=== PATIENT | female | born 1960 | race Caucasian/White ===

== ENCOUNTER 2017-03-14 11:26 | Observation (INO) ==
--- NOTE | 2017-03-14 11:40 | Emergency Department Note ---
Disposition Clinical Impression: CVA (cerebral vascular accident) Qualifiers: CVA mechanism: unspecified Qualified Code(s): I63.9 - Cerebral infarction, unspecified Disposition: Admitted As Inpatient Condition: Fair Referrals: Rica Shook CNP [Primary Care Provider] - Forms: ED Satisfaction Letter Time of Disposition: 13:47 General Adult HPI - General Chief complaint: ED Dizziness Stated complaint: dizziness, increased numbness L hand Time Seen by Provider: 03/14/17 11:32 Source: patient Mode of arrival: wheelchair Limitations: no limitations Nursing Notes Reviewed: Yes Vital Signs Reviewed: Yes - History of Present Illness HPI Narrative: 57-year-old history of previous stroke had some residual left upper extremity weakness who comes in with increased weakness in her left arm for last 4 days. Also has had some numbness in the left arm. Patient also states that she has been dizzy with difficulty ambulating for the last 4 days. Patient has a history of previous aneurysm and coiling done. Pt Subjective Complaint: left Arm numbness and weakness Onset (ago): day(s) (4) Location: left, upper extremity Pain Scale: 0 Associated symptoms: Reports: other ( dizziness) Treatments Prior to Arrival: none - Related Data Allergies Allergy/AdvReac Type Severity Reaction Status Date / Time bupropion [From Wellbutrin] Allergy Itching Verified 03/14/17 11:31 latex Allergy Rash Verified 03/14/17 11:31 Constitutional: Denies: fever, chills, weakness, weight change Eyes: Denies: eye pain, eye discharge, vision change ENT ED: Denies: ear pain, throat pain, dental pain, hearing loss, epistaxis, congestion, dysphagia Cardiovascular: Denies: chest pain, palpitations, dyspnea on exertion, edema, syncope Respiratory: Denies: cough, dyspnea, wheezes, hemoptysis, stridor Gastrointestinal: Denies: abdominal pain, nausea, vomiting, diarrhea, constipation, hematemesis, melena, hematochezia Genitourinary: Denies: dysuria, frequency, hematuria, discharge Musculoskeletal: Denies: back pain, neck pain, arthralgia, myalgia Integumentary: Denies: rash, abrasion, lesions Neurological: Reports: weakness (Left arm), numbness (Left arm), abnormal gait, vertigo. Denies: headache, paresthesias, confusion Psychiatric: Denies: anxiety, depression, suicidal thoughts, homicidal thoughts , auditory hallucinations, visual hallucinations Endocrine: Denies: fatigue Hematological/Lymphatic: Denies: easy bleeding, easy bruising Allergic/Immunologic: Denies: facial swelling, urticaria Past Medical History - Past Medical History Medical history: Reports: CVA, hypertension Psychiatric history: Reports: no psych history - Social History Smoking Status: Current every day smoker Smokeless Tobacco Status: No Alcohol use: Reports: unknown Drug use: Reports: none Physical Exam - General Limitations: no limitations General appearance: alert, in no apparent distress - Head Head exam: atraumatic, normocephalic, normal inspection - Eye Eye exam: Present: normal appearance, PERRL, EOMI - ENT ENT exam: normal exam, normal oropharynx, mucous membranes moist - Neck Neck exam: Present: normal inspection, full ROM, trachea midline - Chest Chest inspection: Present: normal inspection, symmetric chest wall rise - Respiratory Respiratory exam: Present: normal lung sounds bilaterally - Cardiovascular Cardiovascular exam: Present: regular rate, normal rhythm, normal heart sounds - Abdominal Exam Abdominal exam: Present: soft, Non-Tender. Absent: tenderness, distention, guarding, rebound, rigidity - Expanded Lower Extremity Exam Neurovascular/Tendon exam: Absent: motor deficit, sensory deficit, tendon deficit Gait: antalgic - Back Exam Back exam: Present: normal inspection, full ROM. Absent: tenderness - Neurological Exam Neurological exam: Present: motor sensory deficit (Some weakness of coiler strength on the left.) - Psychiatric Psychiatric exam: Present: normal affect, normal mood - Skin Skin exam: Present: warm Course - Reevaluation(s) Reevaluation #1: 57-year-old female with a history of previous aneurysm in coiling with residual stroke symptoms are comes in with worsening left upper extremity weakness and numbness for the last [address] of the head was negative for acute findings. Consultation obtained with neurology to come down and see the patient. Patient will be admitted is not a TPA candidate based on onset and previous aneurysm. Time: 14:17 - Consultations Consultation #1: Discussed with emanuel See. Time: 12:00 Consultation #2: Discussed with emanuel Adamson. Time: 14:17 Vital Signs Temperature 97.9 F 03/14/17 11:27 Pulse Rate 65 03/14/17 11:27 Respiratory Rate 20 03/14/17 11:27 Blood Pressure 169/97 03/14/17 11:27 O2 Sat by Pulse Oximetry 98 03/14/17 11:27 Temperature 97.9 F 03/14/17 11:27 Pulse Rate 59 03/14/17 12:20 Respiratory Rate 17 03/14/17 12:20 Blood Pressure 153/94 03/14/17 12:20 O2 Sat by Pulse Oximetry 98 03/14/17 12:20 Oxygen Delivery Oxygen Delivery Room Air Medical Decision Making - Lab Data Lab results reviewed: Yes I reviewed the patient's lab results. Result diagrams: 03/14/17 12:00 03/14/17 12:00 Lab Results 03/14/17 03/14/17 03/14/17 Range/Units 12:00 12:00 12:00 WBC 5.6 (4.3-11.1) K/mcL RBC 5.67 H (3.82-4.97) M/mcL Hgb 18.4 H (11.5-15.4) g/dL Hct 53.9 H (35.3-44.9) % MCV 95.1 (83.0-100.0) fL MCH 32.5 (28.0-33.3) pg MCHC 34.1 (31.6-35.5) g/dL RDW 13.6 (11.5-14.5) % Plt Count 217 (140-400) K/mcL MPV 10.1 (9.4-12.4) fL Immature Gran % 0.2 (0-4) % Seg Neutrophils % 28.2 % Lymphocytes % 52.7 % Monocytes % 12.5 % Eosinophils % 4.8 % Basophils % 1.6 % Neutrophils # 1.6 (1.6-8.9) K/mcL Lymphocytes # 3.0 (0.6-4.6) K/mcL Monocytes # 0.7 (0.0-1.3) K/mcL Eosinophils # 0.3 (0.0-0.6) K/mcL Basophils # 0.1 (0.0-0.2) K/mcL Sodium 138 (136-145) mEq/L Potassium 3.5 (3.5-5.1) mEq/L Chloride 107 (98-107) mEq/L Carbon Dioxide 22 L (23-29) mEq/L BUN 10 (6-20) mg/dL Creatinine 0.78 (0.60-1.20) mg/dL Est GFR ( Amer) > 60 (> 60) Est GFR (Non-Af Amer) > 60 (> 60) BUN/Creatinine Ratio 13 (6-26) Glucose 96 (70-105) mg/dL Calculated Osmolality 285 (280-300) Calcium 9.1 (8.6-10.3) mg/dL Troponin I < 0.03 (< 0.04) ng/mL Urine Color (Yellow) Urine Clarity (Clear) Urine pH (5.0-8.0) pH Units Ur Specific Rhodes (1.010-1.025) Urine Protein (Neg-Trace) mg/dL Urine Glucose (UA) (Normal) mg/dL Urine Ketones (Negative) mg/dL Urine Blood (Negative) Urine Nitrite (Negative) Urine Bilirubin (Negative) Urine Urobilinogen (Normal) mg/dL Ur Leukocyte Esterase (Negative) Urine Microscopic RBC (0-3) per hpf Urine Microscopic WBC (0-3) per hpf Ur Squamous Epith Cells (None-Few) per lpf Urine Bacteria (None-Few) per hpf Ur Culture Indicated? (NO) 03/14/17 Range/Units 12:15 WBC (4.3-11.1) K/mcL RBC (3.82-4.97) M/mcL Hgb (11.5-15.4) g/dL Hct (35.3-44.9) % MCV (83.0-100.0) fL MCH (28.0-33.3) pg MCHC (31.6-35.5) g/dL RDW (11.5-14.5) % Plt Count (140-400) K/mcL MPV (9.4-12.4) fL Immature Gran % (0-4) % Seg Neutrophils % % Lymphocytes % % Monocytes % % Eosinophils % % Basophils % % Neutrophils # (1.6-8.9) K/mcL Lymphocytes # (0.6-4.6) K/mcL Monocytes # (0.0-1.3) K/mcL Eosinophils # (0.0-0.6) K/mcL Basophils # (0.0-0.2) K/mcL Sodium (136-145) mEq/L Potassium (3.5-5.1) mEq/L Chloride (98-107) mEq/L Carbon Dioxide (23-29) mEq/L BUN (6-20) mg/dL Creatinine (0.60-1.20) mg/dL Est GFR ( Amer) (> 60) Est GFR (Non-Af Amer) (> 60) BUN/Creatinine Ratio (6-26) Glucose (70-105) mg/dL Calculated Osmolality (280-300) Calcium (8.6-10.3) mg/dL Troponin I (< 0.04) ng/mL Urine Color Yellow (Yellow) Urine Clarity Turbid A (Clear) Urine pH 6.0 (5.0-8.0) pH Units Ur Specific Rhodes 1.015 (1.010-1.025) Urine Protein Trace (Neg-Trace) mg/dL Urine Glucose (UA) Normal (Normal) mg/dL Urine Ketones Negative (Negative) mg/dL Urine Blood Negative (Negative) Urine Nitrite Negative (Negative) Urine Bilirubin Negative (Negative) Urine Urobilinogen Normal (Normal) mg/dL Ur Leukocyte Esterase Small H (Negative) Urine Microscopic RBC 5-15 H (0-3) per hpf Urine Microscopic WBC 5-15 H (0-3) per hpf Ur Squamous Epith Cells Many H (None-Few) per lpf Urine Bacteria Moderate H (None-Few) per hpf Ur Culture Indicated? NO. (NO) - Radiology Data Radiology results reviewed: Yes I reviewed the patient's radiology results. Chest X-Ray 03/14/17 11:33 IMPRESSION: No acute cardiopulmonary process. D/ / 03/14/2017 12:17:12 Saeid Kumar MD / Gayatri Pineda Interpreting Provider: Saeid Kumar MD Head CT 03/14/17 11:33 IMPRESSION: No acute intracranial abnormality. Multifocal areas of encephalomalacia are similar to previous MRI on 08/08/2014. Chronic small vessel ischemic white matter disease and cerebral volume loss. D/ / 03/14/2017 13:38:38 Jay Dahl MD / gabbie Interpreting Provider: Jay Dahl MD - EKG Data EKG #1 EKG attestation: Yes I reviewed and interpreted this EKG. EKG shows normal: sinus rhythm Rate: normal Rhythm: NSR Interpretation: no acute changes NIH Stroke Scale - Level of Consciousness LOC: Alert - LOC Questions LOC Questions: Answers both correctly - LOC Commands LOC Commands: Performs both correctly - Best Gaze Best Gaze: Normal - Visual Visual: No visual loss - Facial Palsy Facial Palsy: Normal - Motor Arms Motor Arm-Left: Drift, does NOT hit bed Motor Arm-Right: No drift for 10 seconds - Motor Legs Motor Leg-Left: No drift for 5 seconds Motor Leg-Right: No drift for 5 seconds - Limb Ataxia Limb Ataxia: Normal, No Ataxia - Sensory Sensory: Normal - Best Language Best Language: No aphasia - Dysarthria Dysarthria: Normal - Extinction and Inattention Extinction and Inattention: Normal - NIHSS Total Score NIHSS Total Score: 1 TPA Checklist - Source Information Source: Family - Eligibilty for IV tPA 1. LKW equal to or less than 4.5 hours be before treatment: No - LKW: 3-4.5 hrs Add. Warnings/Precautions Patient/family understanding: The patient/family members have been counseled and understood the risk, benefit , and alternatives of treatment.
[2017-03-14 12:11] LABS: Basophils # 0.1 K/mcL (0.0-0.2); Basophils % 1.6 %; Eosinophils # 0.3 K/mcL (0.0-0.6); Eosinophils % 4.8 %; Hematocrit 53.9 % (35.3-44.9); Hemoglobin 18.4 g/dL (11.5-15.4); Immature Granulocytes % 0.2 % (0-4); Lymphocytes % 52.7 %; Mean Corpuscular HGB Conc 34.1 g/dL (31.6-35.5); Mean Corpuscular Hemoglobin 32.5 pg (28.0-33.3); Mean Corpuscular Volume 95.1 fL (83.0-100.0); Mean Platelet Volume 10.1 fL (9.4-12.4); Monocytes # 0.7 K/mcL (0.0-1.3); Monocytes % 12.5 %; Neutrophils # 1.6 K/mcL (1.6-8.9); Platelet Count 217 K/mcL (140-400); Red Blood Count 5.67 M/mcL (3.82-4.97); Red Cell Distribution Width 13.6 % (11.5-14.5); Segmented Neutrophils % 28.2 %
[2017-03-14 12:34] LABS: BUN/Creatinine Ratio 13 (6-26); Blood Urea Nitrogen 10 mg/dL (6-20); Calcium 9.1 mg/dL (8.6-10.3); Carbon Dioxide 22 mEq/L (23-29); Chloride 107 mEq/L (98-107); Glucose 96 mg/dL (70-105); Osmolality,Calculated 285 (280-300); Potassium 3.5 mEq/L (3.5-5.1); Sodium 138 mEq/L (136-145); eGFR For African Americans > 60 (> 60); eGFR For Non-African Americans > 60 (> 60)
[2017-03-14 13:28] LABS: Bilirubin,Urine Negative (Negative); Blood,Urine Negative (Negative); Clarity,Urine Turbid (Clear); Color,Urine Yellow (Yellow); Glucose,Urine (UA) Normal (Normal); Ketones,Urine Negative (Negative); Leukocyte Esterase,Urine Small (Negative); Nitrite,Urine Negative (Negative); Protein,Urine Trace mg/dL (Neg-Trace); Specific Gravity,Urine 1.015 (1.010-1.025); Urobilinogen,Urine Normal (Normal)
[2017-03-14 13:29] LABS: Bacteria,Urine Moderate per hpf (None-Few); Squamous Epithelial Cell,Urine Many per lpf (None-Few)
[2017-03-14] MEDS ORDERED: clonazePAM 0.5 MG TABLET PO STA (16:24)
[2017-03-14] MEDS ORDERED: hydroCHLOROthiazide 25 MG TABLET PO STA (16:24)
[2017-03-14] MEDS ORDERED: Naloxone 0.4 MG/ML INJ IVP PRN (17:09)
--- NOTE | 2017-03-14 18:02 | Internal Med History&Physical ---
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 History of hypertension-we will allow for permissive hypertension maintaining systolic around 180-hydralazine as needed for systolic greater than 200 Qualifiers: Hypertension type: essential hypertension Qualified Code(s): I10 - Essential (primary) hypertension (3) DVT prophylaxis Current visit: Yes Status: Chronic SCD Internal Medicine - H&P: HPI Chief complaint: dizziness Admitted From: Emergency Dept Plans for Post Hospital Care: Home History of present illness: Ms. Bray is a 57 year old female past medical hx of HTN, CVA aneurysm current smoker. Coronary patient she has not been feeling well for the past few days. She does have a history of stroke with left-sided weakness however over the past few days she has been experiencing increasing weakness as well as tingling to her left arm she also has been dizzy to the point that she feels as if she is going to fall down. She denies any recent falls. She denies any slurred speech difficulty swallowing. In the past she had aneurysm coil 2005 at [facility]. Had a MRA 2016 which did show a small left MCA bifurcation aneurysm measuring 2.5 mm in diameter. She presented to the ER with the above complaints. Lab work was obtained which was unremarkable CT of head was obtained which showed chronic changes. Chest x-ray no acute process. EKG with normal sinus rhythm. She has been admitted for further workup evaluation. Cristofer patient does complain of dizziness feels as if the room is spinning denies any nausea or chest pain or palpitations. She does appear anxious Boner assessment left-sided weakness noted as well as left-sided facial droop. She is bradycardic on the monitor and slightly hypertensive. I did review his case with Dr. Mitchell who agrees with plan. Past Med Surg Social Fam HX - Past Medical History Medical history: CVA, hypertension Psychiatric history: no psych history - Social History Smoking Status: Current every day smoker Smokeless Tobacco Status: No Alcohol use: unknown Drug use: none Internal Medicine - H&P: Meds Clopidogrel Bisulfate [Plavix] 75 mg PO DAILY 03/14/17 [History] Losartan [Cozaar] 25 mg PO DAILY 03/14/17 [History] Metoprolol Tartrate [Lopressor] 50 mg PO BID 03/14/17 [History] Simvastatin [Zocor] 40 mg PO DAILY 03/14/17 [History] Tizanidine HCl 4 mg PO BID PRN 03/14/17 [History] Venlafaxine HCl [Venlafaxine HCl ER] 75 mg PO DAILY 03/14/17 [History] clonazePAM [Klonopin] 0.5 mg PO TID PRN 03/14/17 [History] hydroCHLOROthiazide [Hydrochlorothiazide] 25 mg PO DAILY 03/14/17 [History] 3 Allergy/AdvReac Type Severity Reaction Status Date / Time bupropion [From Wellbutrin] Allergy Itching Verified 03/14/17 11:31 latex Allergy Rash Verified 03/14/17 11:31 All Systems PM: A 10-system review of systems was performed and is negative for pertinent findings except as documented above in the HPI. - Constitutional Constitutional: no chills, no fever(s), no night sweats - EENT Eyes: no change in vision, no discharge, no pain, no photophobia Nose, mouth and throat: no dysphagia, no nasal discharge, no neck pain, no sore throat - Cardiovascular Cardiovascular ROS IM: lightheadedness, no chest pain, no diaphoresis, no dyspnea, no palpitations, no syncope - Respiratory Respiratory: no cough, no dyspnea, no wheezing, no excessive phlegm production - Gastrointestinal Gastrointestinal: no abdominal pain, no diarrhea, no hematemesis, no hematochezia, no melena, no nausea, no vomiting - Genitourinary Genitourinary: no change in urinary stream, no dysuria, no flank pain, no hematuria - Musculoskeletal Musculoskeletal ROS IM: no numbness, no tingling - Neurological Neurological ROS: dizziness, tingling, weakness - Constitutional Vitals: Temp Pulse Resp BP Pulse Ox 97.9 F 62 16 136/98 96 03/14/17 11:27 03/14/17 17:38 03/14/17 17:38 03/14/17 17:38 03/14/17 17:38 General appearance: Present: A&O X 3, answers questions appropriately - Head Head exam: Present: atraumatic, normocephalic - Eye Eye exam: Present: PERRL, conjuntiva pink, sclera anicteric Pupils: Present: PERRL - Neck Neck exam general surgery: Present: supple, trachea midline. Absent: lymphadenopathy - Respiratory Respiratory exam: Present: CTAB. Absent: accessory muscle use, rales, rhonchi, wheezes - Cardiovascular Cardiovascular exam: Present: RRR, +S1, +S2. Absent: diastolic murmur, gallop, rubs, systolic murmur - GI/Abdominal GI/Abdominal exam: Present: normal bowel sounds, soft, no peritoneal signs. Absent: distended, tenderness - Extremities Exam Extremities exam: Present: warm, radial pulses palpable and symmetrical. Absent : calf tenderness, cyanotic, pedal edema - Neurological Exam Neurological exam: Present: CN II-XII intact, oriented X3. Absent: pronater drift, facial droop, speech deficit - Expanded Neurological Exam Patient oriented to: Present: person, place, time Speech: Present: fluid speech Cranial Nerves: EOM's intact PM: Normal, tongue deviation PM: Abnormal Left Neuro motor strength exam: LUE: 4, RUE: 5, LLE: 4, RLE: 5 Coma Scale Eye Opening: Spontaneous Coma Scale Motor Response: Obeys Commands Coma Scale Verbal Response: Oriented Coma Scale Total: 15 Internal Med - H&P Results - Labs CBC & Chem 7: 03/14/17 12:00 03/14/17 12:00 - EKG Data EKG shows normal: sinus rhythm - Diagnostic Studies Other Images Additional comments: Chest X-Ray 03/14/17 11:33 IMPRESSION: No acute cardiopulmonary process. D/ / 03/14/2017 12:17:12 Saeid Kumar MD / Gayatri Pineda Interpreting Provider: Saeid Kumar MD Head CT 03/14/17 11:33 IMPRESSION: 1. No acute intracranial abnormality. 2. Multifocal areas of encephalomalacia are similar to previous MRI on 08/08/2014. 3. Chronic small vessel ischemic white matter disease and cerebral volume loss. D/ / 03/14/2017 13:38:38 Jay Dahl MD / [email or web address] Interpreting Provider: Jay Dahl MD
[2017-03-14] MEDS: clonazePAM 0.5 MG TABLET PO PRN (22:50)
[2017-03-15 00:24] LABS: Basophils # 0.1 K/mcL (0.0-0.2); Basophils % 1.4 %; Eosinophils # 0.3 K/mcL (0.0-0.6); Eosinophils % 4.5 %; Hemoglobin 17.4 g/dL (11.5-15.4); Immature Granulocytes % 0.2 % (0-4); Immature Platelets 4.4 % (1.1-6.1); Lymphocytes # 2.8 K/mcL (0.6-4.6); Lymphocytes % 47.5 %; Mean Corpuscular HGB Conc 34.1 g/dL (31.6-35.5); Mean Corpuscular Hemoglobin 32.6 pg (28.0-33.3); Mean Corpuscular Volume 95.5 fL (83.0-100.0); Mean Platelet Volume 9.9 fL (9.4-12.4); Monocytes # 0.9 K/mcL (0.0-1.3); Monocytes % 15.1 %; Neutrophils # 1.8 K/mcL (1.6-8.9); Platelet Count 217 K/mcL (140-400); Red Blood Count 5.34 M/mcL (3.82-4.97); Red Cell Distribution Width 13.6 % (11.5-14.5); Segmented Neutrophils % 31.3 %
[2017-03-15] MEDS ORDERED: Heparin 25,000 UNIT/500 ML D5W 25,000 UNIT/500 ML BAG IVC SCH (00:45)
[2017-03-15 01:09] LABS: INR 1.1; Prothrombin Time 11.8 Seconds (9.4-12.1)
[2017-03-15 01:12] LABS: Activated Partial Thrombo Time 32.7 Seconds (26.0-36.0)
[2017-03-15 01:25] LABS: BUN/Creatinine Ratio 17 (6-26); Blood Urea Nitrogen 15 mg/dL (6-20); Calcium 9.8 mg/dL (8.6-10.3); Carbon Dioxide 24 mEq/L (23-29); Chloride 107 mEq/L (98-107); Chol/HDL Ratio 2.4 (0-4.9); Cholesterol 138 mg/dL (< 200); Glucose 107 mg/dL (70-105); HDL Cholesterol 57 mg/dL (40-59); LDL Cholesterol,Calculated 55 mg/dL (0-99); Magnesium 1.9 mg/dL (1.6-2.6); Osmolality,Calculated 289 (280-300); Potassium 3.9 mEq/L (3.5-5.1); Sodium 139 mEq/L (136-145); Triglycerides 128 mg/dL (< 150); eGFR For African Americans > 60 (> 60); eGFR For Non-African Americans > 60 (> 60)
--- NOTE | 2017-03-15 02:30 | Event Note ---
Date of Encounter: 03/15/17 Time of Encounter: 02:28 Recieved page from floor nurse that MRI/MRA results returned. 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 Patient has no acute complaints, neurological status unchanged. I called the on-call neurologist, Dr. Fraser, who suggested that the patient be placed on a vascular protocol dose heparin drip without push corrections, and to get a CTA of the head and neck. I have placed these orders and confirmed with nurse. I have also placed a consult to vascular surgery.
--- NOTE | 2017-03-15 11:54 | Neurology - Consult Note ---
Date of Encounter: 03/14/17 Time of Encounter: 11:54 Assessment and Plan (1) Left-sided weakness Current Visit: Yes Status: Acute This patient who has an history of previous stroke with a history of cerebral aneurysm with coiling several years ago with mild residual left-sided weakness now admitted with this acute dizziness which is more lightheaded but some is spinning feeling along with worsening of this left-sided weakness CT scan of the head was negative I did not appreciate any real bad weakness she did have a mildly spastic weakness of the left side which is likely due to her previous stroke Currently she is on Plavix suggested to continue She will need workup including MRI of the brain along with MRA to make sure there is no underlying other abnormality in particularly no associated bleed: No large bleed noted on CT scan of the head She did have a residual aneurysm noted on her previous imaging studies Also suggested check for other metabolic and infectious abnormalities and particularly UTI that may be contributing to her symptoms Dizziness could be peripheral in nature but before that we have discovered a central etiology (2) Dizziness Current Visit: Yes Status: Chronic (3) History of CVA with residual deficit Current Visit: Yes Status: Chronic She is on Plavix suggested to continue on it no evidence of any new infarct on imaging studies will follow the results of MRI and MRA of the brain (4) History of cerebral aneurysm repair Current Visit: Yes Status: Chronic Stable no evidence of any bleed noted, Continue on Plavix only No further change in the medication, Make sure patient is hydrated Physical therapy to evaluate the patient for gait and balance May use some meclizine on an as needed basis for dizziness make sure patient is well hydrated History of Present Illness HPI: Ms. Bray is a 57 year old female hx of HTN, CVA aneurysm, s/p coiling at [facility] < came into the emergency room because of foot dizziness lightheadedness and some worsening of her left-sided weakness from the previous stroke. Last imaging studies of her head MRA 2016 which did show a small left MCA bifurcation aneurysm measuring 2.5 mm in diameter. She presented to the ER with the above complaints. Lab work was obtained which was unremarkable CT of head was obtained which showed chronic changes. Chest x-ray no acute process. EKG with normal sinus rhythm. She has been admitted for further workup evaluation. Baseline patient did have a mild residual left-sided weakness but she is able to walk without any help Past Med Surg Social Fam HX - Past Medical History Medical history: CVA, hypertension Psychiatric history: no psych history - Past Surgical History Surgical History: vascular surgery - Social History Smoking Status: Current every day smoker Smokeless Tobacco Status: No Alcohol use: unknown Drug use: none Medications and Allergies Clopidogrel Bisulfate [Plavix] 75 mg PO DAILY 03/14/17 [History] Losartan [Cozaar] 25 mg PO DAILY 03/14/17 [History] Metoprolol Tartrate [Lopressor] 50 mg PO BID 03/14/17 [History] Simvastatin [Zocor] 40 mg PO DAILY 03/14/17 [History] Tizanidine HCl 4 mg PO BID PRN 03/14/17 [History] Venlafaxine HCl [Venlafaxine HCl ER] 75 mg PO DAILY 03/14/17 [History] clonazePAM [Klonopin] 0.5 mg PO TID PRN 03/14/17 [History] hydroCHLOROthiazide [Hydrochlorothiazide] 25 mg PO DAILY 03/14/17 [History] Amoxicillin 875 mg PO BID #10 tablet 03/16/17 [Rx] Ciprofloxacin HCl/Dexameth [Ciprodex Otic Suspension] 4 drop OT BID #1 bottle [Rx] Meclizine HCl [Verticalm] 25 mg PO DAILY #30 tablet 03/16/17 [Rx] 3 Allergy/AdvReac Type Severity Reaction Status Date / Time bupropion [From Wellbutrin] Allergy Itching Verified 03/14/17 11:31 latex Allergy Rash Verified 03/14/17 11:31 All Systems: A 10-system review of systems was performed and is negative for pertinent findings except as documented above in the HPI. Physical Examination - Vital Signs Vital Signs: Initial Vital Signs Temp Pulse Resp BP Pulse Ox 97.9 F 65 20 169/97 98 03/14/17 11:27 03/14/17 11:27 03/14/17 11:27 03/14/17 11:27 03/14/17 11:27 - Constitutional General appearance: comfortable - Neurologic Sensorimotor examination: intact Motor examination - right side: 5/5: deltoids, biceps, triceps, wrist flexion, wrist extension, hand grinder, hip flexors, tibialis Anterior, quadriceps, toe extension (EHL), plantarflexion Motor examination - left side: 4/5: deltoids, biceps, triceps, wrist flexion, wrist extension, hip flexors, hand grinder, quadriceps, tibialis Anterior, toe extension (EHL), plantarflexion Detailed sensory examination: intact Reflex and gait examination: intact Reflexes: Biceps: 1+, Triceps: 1+, Brachioradialis: 1+, Patella: 1+, Achilles: 1 + Mental Status Examination: awake, alert, oriented to person, oriented to place, oriented to time, follows commands appropriately, answers questions appropriately, no agnosia, no aphasia, no aproxia Cranial nerve examination: PERRL, EOMI, visual diggs intact, corneal reflexes brisk symmetrically, sensory to face intact, mastication intact, no facial asymmetry is present, no dysarthria, hearing is intact symmetrically, soft palate elevates bilaterally upon phonation, gag reflex intact, flexes SCM and trapezius muscles symmetrically with full power, tongue protrudes midline, no atrophy or facial fasiculations present Ataxia: left upper extremity (mild tremros ataxia on left with mild contracture of hands) Results - Laboratory Findings CBC and BMP: 03/16/17 04:25 03/16/17 04:25 Abnormal lab findings: Abnormal lab results RBC 5.34 M/mcL (3.82-4.97) H 03/15/17 00:12 Hgb 17.4 g/dL (11.5-15.4) H 03/15/17 00:12 Hct 51.0 % (35.3-44.9) H 03/15/17 00:12 APTT 86.3 Seconds (26.0-36.0) H D 03/15/17 08:10 Glucose 107 mg/dL (70-105) H 03/15/17 00:12 Urine Clarity Turbid (Clear) A 03/14/17 12:15 Ur Leukocyte Esterase Small (Negative) H 03/14/17 12:15 Urine Microscopic RBC 5-15 per hpf (0-3) H 03/14/17 12:15 Urine Microscopic WBC 5-15 per hpf (0-3) H 03/14/17 12:15 Ur Squamous Epith Cells Many per lpf (None-Few) H 03/14/17 12:15 Urine Bacteria Moderate per hpf (None-Few) H 03/14/17 12:15 Consult Discharge Plan - Plan Instructions: Ciprofloxacin (By mouth), Meclizine (By mouth), Amoxicillin/ Clavulanate Potassium (By mouth), Ischemic Stroke (DC), Ischemic Stroke (GEN), Chronic Hypertension (DC) Additional Instructions: continue home meds + started meclizine Referrals: Trisha Chaparro MD [Primary Care Provider] - Prescriptions: Amoxicillin 875 mg PO BID #10 tablet Ciprofloxacin HCl/Dexameth [Ciprodex Otic Suspension] 4 drop OT BID #1 bottle Meclizine HCl [Verticalm] 25 mg PO DAILY #30 tablet
--- NOTE | 2017-03-15 12:05 | Neurology Progress Note ---
Date of Encounter: 03/15/17 Time of Encounter: 12:02 Assessment and Plan (1) Left-sided weakness Current Visit: Yes Status: Acute MRI of the brain did not show any acute infarct her left-sided weakness was likely worsening from the dizziness and weakness that she was experiencing She is on Plavix suggested to continue (2) Dizziness Current Visit: Yes Status: Chronic No evidence of any posterior circulation stenosis and vertebrals are intact Suggest PT evaluation to make sure patient gait and balance is stable (3) History of CVA with residual deficit Current Visit: Yes Status: Chronic (4) History of cerebral aneurysm repair Current Visit: Yes Status: Chronic Stable no evidence of any bleed noted on CT angiogram There was a concern that she may have a supraclinoid critical stenosis of the ICA which was not noted on CT angiogram It was likely an artifact suggested discontinue heparin Continue on Plavix only No further change in the medication Make sure patient is hydrated Physical therapy to evaluate the patient for gait and balance May use some meclizine on an as needed basis for dizziness make sure patient is well hydrated Subjective Interval history: Patient was seen in follow-up she was seen yesterday in the emergency room and she was admitted with dizziness. 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 No acute infarct. Chronic changes noted because of concern of critical stenoses as was reported on the MRA he was started on heparin with vascular protocol without any bolus last night but at the same time I suggested doing a CT angiogram to confirm that indeed is a true stenosis are not considering her history she is supposed to have significant collaterals but it was not mentioned much on an MRA perhaps due to the artifact. Regardless patient did have a CT angiogram this morning That did not show any critical stenosis in fact what was seen on the MRA was likely an artifact. Objective - Constitutional Vitals: Temp Pulse Resp BP Pulse Ox 97.9 F 82 14 128/94 96 03/15/17 08:03 03/15/17 08:03 03/15/17 08:03 03/15/17 08:03 03/15/17 08:03 - Neurological Exam Motor Examination: Present: grossly full strength in all extremities Motor examination - left side: 4/5: deltoids, biceps, triceps, wrist flexion, wrist extension, hip flexors, rn pain management, quadriceps, tibialis Anterior, toe extension (EHL), plantarflexion Sensation intact: Present: intact Reflex and gait examination: intact Reflexes: Biceps: 1+, Triceps: 1+, Brachioradialis: 1+, Patella: 1+, Achilles: 1 + Mental Status Examination: Present: awake, oriented to person, oriented to place , oriented to time, follows commands appropriately, answers questions appropriately Cranial nerve examination: Present: PERRL, EOMI, visual diggs intact, sensory to face intact, mastication intact, no dysarthria Ataxia: left upper extremity Results - Laboratory Findings CBC and BMP: 03/16/17 04:25 03/16/17 04:25 Abnormal lab findings: Abnormal lab results RBC 5.34 M/mcL (3.82-4.97) H 03/15/17 00:12 Hgb 17.4 g/dL (11.5-15.4) H 03/15/17 00:12 Hct 51.0 % (35.3-44.9) H 03/15/17 00:12 APTT 86.3 Seconds (26.0-36.0) H D 03/15/17 08:10 Glucose 107 mg/dL (70-105) H 03/15/17 00:12 Urine Clarity Turbid (Clear) A 03/14/17 12:15 Ur Leukocyte Esterase Small (Negative) H 03/14/17 12:15 Urine Microscopic RBC 5-15 per hpf (0-3) H 03/14/17 12:15 Urine Microscopic WBC 5-15 per hpf (0-3) H 03/14/17 12:15 Ur Squamous Epith Cells Many per lpf (None-Few) H 03/14/17 12:15 Urine Bacteria Moderate per hpf (None-Few) H 03/14/17 12:15 - Diagnostic Findings Additional findings: CT angiogram of the head and neck showed The middle cerebral and anterior cerebral arteries are patent. POSTERIOR CIRCULATION: The posterior cerebral arteries demonstrate no focal stenosis. The vertebral and basilar arteries appear unremarkable. A 3 mm aneurysm at the left middle cerebral artery bifurcation is unchanged. Previously coiled aneurysms at the anterior cerebral artery and right internal carotid artery are unchanged. Chronic encephalomalacia in the left DENNIS and right MCA territories is unchanged. The right chronic encephalomalacia involves the postcentral gyrus. No significant stenosis of the head or neck arteries. Apparent right internal carotid artery stenosis on recent MRA is likely due to artifact from the adjacent embolization coil. Consult Discharge Plan - Plan Instructions: Ciprofloxacin (By mouth), Meclizine (By mouth), Amoxicillin/ Clavulanate Potassium (By mouth), Ischemic Stroke (DC), Ischemic Stroke (GEN), Chronic Hypertension (DC) Additional Instructions: continue home meds + started meclizine Referrals: Trisha Chaparro MD [Primary Care Provider] - Prescriptions: Amoxicillin 875 mg PO BID #10 tablet Ciprofloxacin HCl/Dexameth [Ciprodex Otic Suspension] 4 drop OT BID #1 bottle Meclizine HCl [Verticalm] 25 mg PO DAILY #30 tablet
[2017-03-15] MEDS: clonazePAM 0.5 MG TABLET PO PRN ×2 (12:30→20:43)
--- NOTE | 2017-03-15 15:10 | Internal Med Progress Note ---
Date of Encounter: 03/15/17 Time of Encounter: 09:45 - Assessment and plan (1) CVA (cerebral vascular accident) Current Visit: Yes Status: Suspected Assessment and plan: Pt with dizziness and weakness. MRI and CTA done - appreciate neuro input. Continue supportive care. Plavix. PT/OT evals in AM. Qualifiers: CVA mechanism: occlusion Precerebral and cerebral artery: cerebellar artery Laterality of affected vessel: right Qualified Code(s): I63.541 - Cerebral infarction due to unspecified occlusion or stenosis of right cerebellar artery (2) HTN (hypertension) Current Visit: Yes Status: Chronic Assessment and plan: Continue home meds. Following. Qualifiers: Hypertension type: essential hypertension Qualified Code(s): I10 - Essential (primary) hypertension (3) Dizziness Current Visit: Yes Status: Chronic Assessment and plan: Supportive care PT/OT PRN Antivert (4) History of CVA with residual deficit Current Visit: Yes Status: Chronic Assessment and plan: L side weakness (5) History of cerebral aneurysm repair Current Visit: Yes Status: Chronic (6) Polycythemia Current Visit: Yes Status: Chronic Assessment and plan: Hemoglobin over 17. Was elevated in 2014 as well. Will check ferritin level in AM. Pt is smoker so may be related to this. May need further oxygenation studies. Also may be contributing to neurologic issues. - Subjective Interval history: Ms Bray is currently in observation for acute neurological symptoms with hx of CVA. She remains moderate to high risk at this time. Ms Bray still feels pretty weak. No fever or chills. Still with some dizziness when sitting up. No GI issues. Appetite OK. - Constitutional Vitals: Temp Pulse Resp BP Pulse Ox 97.9 F 82 14 128/94 96 03/15/17 08:03 03/15/17 08:03 03/15/17 08:03 03/15/17 08:03 03/15/17 08:03 General appearance: Present: A&O X 3, answers questions appropriately - Head Head exam: Present: atraumatic, normocephalic - Eye Eye exam: Present: EOMI, conjuntiva pink - ENT ENT exam: Present: mucous membranes dry - Respiratory Respiratory exam: Present: CTAB. Absent: rales, rhonchi, wheezes - Cardiovascular Cardiovascular exam: Present: RRR. Absent: tachycardia - GI/Abdominal GI/Abdominal exam: Present: soft. Absent: tenderness - Extremities Exam Extremities exam: Present: warm. Absent: tenderness - Neurological Exam Neurological exam: Present: alert, oriented X3 - Skin Skin exam: Present: warm. Absent: rash Internal Medicine: Result - Labs CBC & Chem 7: 03/15/17 00:12 03/15/17 00:12 Labs: Short CBC 03/15/17 Range/Units 00:12 WBC 5.8 (4.3-11.1) K/mcL Hgb 17.4 H (11.5-15.4) g/dL Hct 51.0 H (35.3-44.9) % Plt Count 217 (140-400) K/mcL Neutrophils # 1.8 (1.6-8.9) K/mcL BMP 03/15/17 00:12 Sodium 139 Potassium 3.9 Chloride 107 Carbon Dioxide 24 BUN 15 Creatinine 0.90 Glucose 107 H Calcium 9.8 Cardiac Enzymes 03/14/17 03/15/17 Range/Units 18:05 00:12 Troponin I < 0.03 < 0.03 (< 0.04) ng/mL - ABG Interpretation ABG results: PT/INR, D-dimer PT 11.8 Seconds (9.4-12.1) 03/15/17 00:52 - Impressions Impressions Brain MRI 03/14/17 18:10 IMPRESSION: 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 No acute infarct. Chronic infarcts as described. Cervical vasculature is patent. The findings were sent to the Radiology Results Communication [facility] at 10:51 pm on 03/14/2017to be communicated to a licensed caregiver. 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 No acute infarct. Chronic infarcts as described. Cervical vasculature is patent. The findings were sent to the Radiology Results Communication Center at 10:51 pm on 03/14/2017to be communicated to a licensed caregiver. 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 No acute infarct. Chronic infarcts as described. Cervical vasculature is patent. The findings were sent to the Radiology Results Communication Center at 10:51 pm on 03/14/2017to be communicated to a licensed caregiver. D/ / Jason Larson MD / Jason Larson MD Interpreting Provider: Jason Larson MD Head CTA 03/15/17 02:31 IMPRESSION: 1. No significant stenosis of the head or neck arteries. 2. Apparent right internal carotid artery stenosis on recent MRA is likely due to artifact from the adjacent embolization coil. D/ / 03/15/2017 09:47:11 Jermaine Lopez MD / Gayatri Pineda Interpreting Provider: Jermaine Lopez MD Neck CTA 03/15/17 02:31 IMPRESSION: 1. No significant stenosis of the head or neck arteries. 2. Apparent right internal carotid artery stenosis on recent MRA is likely due to artifact from the adjacent embolization coil. D/ / 03/15/2017 09:47:11 Jermaine Lopez MD / Gayatri Pineda Interpreting Provider: Jermaine Lopez MD Consult Discharge Plan - Plan Referrals: Trisha Chaparro MD [Primary Care Provider] -
[2017-03-15] MEDS ORDERED: tiZANidine 4 MG TABLET PO PRN (15:19)
[2017-03-15] MEDS: hydroCHLOROthiazide 25 MG TABLET PO SCH (16:01)
[2017-03-15] MEDS: Venlafaxine XR (24 HR) 75 MG CAP.ER.24H PO SCH (16:01)
--- NOTE | 2017-03-15 17:28 | Event Note ---
Date of Encounter: 03/14/17 Time of Encounter: 17:28 Patient seen and examined with MUSIC ASSISTANT. Agree with assessment and plan
[2017-03-16 05:36] LABS: Hematocrit 49.9 % (35.3-44.9); Hemoglobin 16.6 g/dL (11.5-15.4); Mean Corpuscular HGB Conc 33.3 g/dL (31.6-35.5); Mean Corpuscular Hemoglobin 31.6 pg (28.0-33.3); Mean Platelet Volume 9.9 fL (9.4-12.4); Platelet Count 203 K/mcL (140-400); Red Blood Count 5.25 M/mcL (3.82-4.97); Red Cell Distribution Width 13.5 % (11.5-14.5)
[2017-03-16 05:40] LABS: BUN/Creatinine Ratio 17 (6-26); Blood Urea Nitrogen 13 mg/dL (6-20); Calcium 9.3 mg/dL (8.6-10.3); Carbon Dioxide 23 mEq/L (23-29); Chloride 107 mEq/L (98-107); Ferritin 253 ng/ml (10-120); Glucose 105 mg/dL (70-105); Magnesium 1.9 mg/dL (1.6-2.6); Osmolality,Calculated 286 (280-300); Potassium 3.7 mEq/L (3.5-5.1); Sodium 138 mEq/L (136-145); eGFR For African Americans > 60 (> 60); eGFR For Non-African Americans > 60 (> 60)
[2017-03-16 06:44] VITALS: BP 124/78
[2017-03-16] MEDS ORDERED: hydroCHLOROthiazide 25 MG TABLET PO SCH (09:00)
[2017-03-16] MEDS ORDERED: Venlafaxine XR (24 HR) 75 MG CAP.ER.24H PO SCH (09:00)
--- NOTE | 2017-03-16 09:16 | Discharge Summary ---
<Neil Pino - Last Filed: 03/16/17 14:51> Date of Encounter: 03/16/17 Time of Encounter: 09:15 - Discharge Diagnosis (1) HTN (hypertension) Priority: Secondary Status: Chronic Qualifiers: Hypertension type: essential hypertension Qualified Code(s): I10 - Essential (primary) hypertension (2) DVT prophylaxis Priority: Secondary Status: Chronic (3) Dizziness Priority: Primary Status: Chronic (4) History of CVA with residual deficit Priority: Secondary Status: Chronic (5) Polycythemia Priority: Secondary Status: Chronic (6) Obese Priority: Secondary Status: Acute Qualifiers: Qualified Code(s): E66.9 - Obesity, unspecified - Discharge Medications Prescriptions: Amoxicillin 875 mg PO BID #10 tablet Ciprofloxacin HCl/Dexameth [Ciprodex Otic Suspension] 4 drop OT BID #1 bottle Meclizine HCl [Verticalm] 25 mg PO DAILY #30 tablet Home Medications: Clopidogrel Bisulfate [Plavix] 75 mg PO DAILY 03/14/17 [History] Losartan [Cozaar] 25 mg PO DAILY 03/14/17 [History] Metoprolol Tartrate [Lopressor] 50 mg PO BID 03/14/17 [History] Simvastatin [Zocor] 40 mg PO DAILY 03/14/17 [History] Tizanidine HCl 4 mg PO BID PRN 03/14/17 [History] Venlafaxine HCl [Venlafaxine HCl ER] 75 mg PO DAILY 03/14/17 [History] clonazePAM [Klonopin] 0.5 mg PO TID PRN 03/14/17 [History] hydroCHLOROthiazide [Hydrochlorothiazide] 25 mg PO DAILY 03/14/17 [History] Amoxicillin 875 mg PO BID #10 tablet 03/16/17 [Rx] Ciprofloxacin HCl/Dexameth [Ciprodex Otic Suspension] 4 drop OT BID #1 bottle [Rx] Meclizine HCl [Verticalm] 25 mg PO DAILY #30 tablet 03/16/17 [Rx] Allergies/Adverse Reactions: 3 Allergy/AdvReac Type Severity Reaction Status Date / Time bupropion [From Wellbutrin] Allergy Itching Verified 03/14/17 11:31 latex Allergy Rash Verified 03/14/17 11:31 Procedures/tests Complete & Pending: Procedures Performed prior 72 hours Category Date Time Status CT angio head [CT] Routine Cat Scan 03/15/17 02:31 Draft CTA Neck [CT angio neck] [CT] Routine Cat Scan 03/15/17 02:31 Draft MR angio head wo con [MR] Stat MRI 03/14/17 18:10 Completed MR angio neck wo con [MR] Stat MRI 03/14/17 19:38 Completed MR head/brain wo con [MR] Stat MRI 03/14/17 18:10 Completed EV carotid duplex imaging BI Routine Y 03/14/17 17:17 Completed EV echocardiogram Routine Y 03/14/17 17:16 Completed Date of admission: 03/14/17 16:06 Primary care physician: Trisha Chaparro, Consults: 03/15/17 11:10 Consult to Occupational Therapy [CONS] Routine Comment: Evaluate, develop and implement POC Reason for Consult: LEFT HAND NUMBMESS, R/O CVA Consult to Physical Therapy [CONS] Routine Comment: Evaluate, develop and implement POC Reason for Consult: LEFT HAND NUMBMESS R/O CVA - Patient Status Disposition: Home, Self-Care Condition: Fair Overall status at discharge: patient is progressing back to baseline - Discharge Instructions Instructions: Ciprofloxacin (By mouth), Meclizine (By mouth), Amoxicillin/ Clavulanate Potassium (By mouth), Ischemic Stroke (DC), Ischemic Stroke (GEN), Chronic Hypertension (DC) Follow Up With: Trisha Chaparro MD [Primary Care Provider] - Additional Instructions: continue home meds + started meclizine - Diet and Activity Activity: increase activity as tolerated Diet: low salt diet Hospital course: Ms. Bray is a 57 year old female w/ pmh of stroke with residual left upper extremity weakness presented with dizziness and increased weakness in her left arm for 4 prior days. Neurology was consulted for concerns of new stroke. CT scan of head was negative, and during re-evaluation patient was asymptomatic. She was continued on her plavix. On her second day of hospitalization further workup was performed with MRI and CT of the head. MRI did not show any acute infarct but MRA did show concerns of occlusion. High grade critical stenosis was reported on MRA, patient was then started on heparin. follow up CTA was performed and the stenosis seen on MRA was not visualized and considered most likely an artifact. echo was also performed, LVEF 65% with mild LV diastolic dysfunction. Serial trops were performed and negative. Carotid occlusion and stroke were ruled out. Patient to have follow up with PCP and neurology within 1 week of discharge. Patient was also found to have otitis externa and cerumen impaction on the right side. Patient was discharged with ciprodox ear drops and amoxicillin PO. And Meclizine for vertigo. Time spent discussing smoking cessation with patient: more than 10 minutes - Time Spent with Patient Total time spent providing and/or coordinating discharge services: Greater than 30 minutes - Constitutional Vitals: Temp Pulse Resp BP Pulse Ox 97.7 F 60 16 124/78 93 03/16/17 06:00 03/16/17 06:00 03/16/17 06:00 03/16/17 06:00 03/16/17 06:00 General appearance: Present: A&O X 3, obese, answers questions appropriately - Head Head exam: Present: atraumatic, normocephalic - Eye Eye exam: Present: PERRL, conjuntiva pink, sclera anicteric Pupils: Present: PERRL - ENT Additional comments: Right ear impacted with cerumen and external canal erythematous. Pain elicited while pulling on pinna. - Respiratory Respiratory exam: Present: CTAB, prolonged expiratory phase. Absent: accessory muscle use, rales, rhonchi, wheezes - Cardiovascular Cardiovascular exam: Present: RRR, +S1, +S2. Absent: diastolic murmur, gallop, JVD, rubs, systolic murmur Additional comments: no carotid bruits - Extremities Exam Extremities exam: Present: normal inspection, radial pulses palpable and symmetrical. Absent: pedal edema <Aroldo Parkinson - Last Filed: 03/16/17 18:54> Date of Encounter: 03/16/17 - Discharge Diagnosis (1) Acute serous otitis media of right ear Priority: Primary Status: Acute Qualifiers: Recurrence: not specified as recurrent Qualified Code(s): H65.01 - Acute serous otitis media, right ear (2) Otitis externa of both ears Priority: Secondary Status: Acute Qualifiers: Otitis externa type: swimmer's ear Chronicity: acute Qualified Code(s): H60.333 - Swimmer's ear, bilateral (3) CVA (cerebral vascular accident) Priority: Primary Status: Ruled-out Qualifiers: CVA mechanism: occlusion Precerebral and cerebral artery: cerebellar artery Laterality of affected vessel: right Qualified Code(s): I63.541 - Cerebral infarction due to unspecified occlusion or stenosis of right cerebellar artery (4) HTN (hypertension) Status: Chronic Qualifiers: Hypertension type: essential hypertension Qualified Code(s): I10 - Essential (primary) hypertension (5) Dizziness Status: Chronic (6) History of CVA with residual deficit Status: Chronic (7) History of cerebral aneurysm repair Priority: Secondary Status: Chronic (8) Polycythemia Status: Chronic Procedures/tests Complete & Pending: Procedures Performed prior 72 hours Category Date Time Status CT angio head [CT] Routine Cat Scan 03/15/17 02:31 Draft CTA Neck [CT angio neck] [CT] Routine Cat Scan 03/15/17 02:31 Draft MR angio head wo con [MR] Stat MRI 03/14/17 18:10 Completed MR angio neck wo con [MR] Stat MRI 03/14/17 19:38 Completed MR head/brain wo con [MR] Stat MRI 03/14/17 18:10 Completed EV carotid duplex imaging BI Routine Y 03/14/17 17:17 Completed EV echocardiogram Routine Y 03/14/17 17:16 Completed - Notes to Outpatient Provider Please follow up on hemoglobin elevation. Ferritin not markedly elevated. Date of admission: 03/14/17 16:06 Primary care physician: Trisha Chaparro, Consults: 03/15/17 11:10 Consult to Occupational Therapy [CONS] Routine Comment: Evaluate, develop and implement POC Reason for Consult: LEFT HAND NUMBMESS, R/O CVA Consult to Physical Therapy [CONS] Routine Comment: Evaluate, develop and implement POC Reason for Consult: LEFT HAND NUMBMESS R/O CVA Hospital course: Ms. Bray is a 57 year old female - Time Spent with Patient Total time spent providing and/or coordinating discharge services: - Constitutional Vitals: Temp Pulse Resp BP Pulse Ox 97.7 F 60 16 124/78 93 03/16/17 06:00 03/16/17 06:00 03/16/17 06:00 03/16/17 06:00 03/16/17 09:28 - Attending Attestation I examined this patient and my medical decision-making was reviewed with the Resident Physician on 03/16/17. I agree with the documented findings, disposition and treatment plan as described except to the extent set forth below. Ms Bray has been admitted for dizziness and concern for CVA. MRI was negative. Exam today shows otitis externa and serous OM on R. She is afebrile and feels ready for discharge home. Exam Alert. Comfortable Mucus membranes dry Heart reg No wheeze Plan D/C today Amoxil and ciprodex drops
[2017-03-16] MEDS: Venlafaxine XR (24 HR) 75 MG CAP.ER.24H PO SCH (09:25)
[2017-03-16] MEDS: hydroCHLOROthiazide 25 MG TABLET PO SCH (09:25)
--- NOTE | 2017-03-16 10:08 | Neurology Progress Note ---
Date of Encounter: 03/16/17 Time of Encounter: 07:40 Assessment and Plan (1) Left-sided weakness Current Visit: Yes Status: Acute (2) Dizziness Current Visit: Yes Status: Chronic (3) History of CVA with residual deficit Current Visit: Yes Status: Chronic (4) History of cerebral aneurysm repair Current Visit: Yes Status: Chronic Subjective Interval history: Patient was seen in follow-up she was seen yesterday in the emergency room and she was admitted with dizziness. 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 No acute infarct. Chronic changes noted because of concern of critical stenoses as was reported on the MRA he was started on heparin with vascular protocol without any bolus last night but at the same time I suggested doing a CT angiogram to confirm that indeed is a true stenosis are not considering her history she is supposed to have significant collaterals but it was not mentioned much on an MRA perhaps due to the artifact. Regardless patient did have a CT angiogram this morning That did not show any critical stenosis in fact what was seen on the MRA was likely an artifact. Objective - Constitutional Vitals: Temp Pulse Resp BP Pulse Ox 97.7 F 60 16 124/78 93 03/16/17 06:00 03/16/17 06:00 03/16/17 06:00 03/16/17 06:00 03/16/17 06:00 - Neurological Exam Motor Examination: Present: grossly full strength in all extremities Motor examination - right side: 5/5: deltoids, biceps, triceps, wrist flexion, wrist extension, scale technician, hip flexors, tibialis Anterior, quadriceps, toe extension (EHL), plantarflexion Motor examination - left side: 4/5: deltoids, biceps, triceps, wrist flexion, wrist extension, hip flexors, scale technician, quadriceps, tibialis Anterior, toe extension (EHL), plantarflexion Sensation intact: Present: intact Reflex and gait examination: intact Reflexes: Biceps: 1+, Triceps: 1+, Brachioradialis: 1+, Patella: 1+, Achilles: 1 + Mental Status Examination: Present: awake, alert, oriented to person, oriented to place, oriented to time, follows commands appropriately, answers questions appropriately Cranial nerve examination: Present: PERRL, EOMI, visual diggs intact, sensory to face intact, no dysarthria Ataxia: left upper extremity Additional comments: Mild spastic weakness in left upper ext 4/4 - range no other defecit, old from previous stroke Results - Laboratory Findings CBC and BMP: 03/16/17 04:25 03/16/17 04:25 Abnormal lab findings: Abnormal lab results RBC 5.25 M/mcL (3.82-4.97) H 03/16/17 04:25 Hgb 16.6 g/dL (11.5-15.4) H 03/16/17 04:25 Hct 49.9 % (35.3-44.9) H 03/16/17 04:25 APTT 86.3 Seconds (26.0-36.0) H D 03/15/17 08:10 POC Glucose 109 (58-89) H 03/14/17 11:48 Ferritin 253 ng/ml (10-120) H 03/16/17 04:25 Urine Clarity Turbid (Clear) A 03/14/17 12:15 Ur Leukocyte Esterase Small (Negative) H 03/14/17 12:15 Urine Microscopic RBC 5-15 per hpf (0-3) H 03/14/17 12:15 Urine Microscopic WBC 5-15 per hpf (0-3) H 03/14/17 12:15 Ur Squamous Epith Cells Many per lpf (None-Few) H 03/14/17 12:15 Urine Bacteria Moderate per hpf (None-Few) H 03/14/17 12:15 Consult Discharge Plan - Plan Instructions: Ciprofloxacin (By mouth), Meclizine (By mouth), Amoxicillin/ Clavulanate Potassium (By mouth), Ischemic Stroke (DC), Ischemic Stroke (GEN), Chronic Hypertension (DC) Additional Instructions: continue home meds + started meclizine Referrals: Trisha Chaparro MD [Primary Care Provider] - Prescriptions: Amoxicillin 875 mg PO BID #10 tablet Ciprofloxacin HCl/Dexameth [Ciprodex Otic Suspension] 4 drop OT BID #1 bottle Meclizine HCl [Verticalm] 25 mg PO DAILY #30 tablet
[2017-03-16] MEDS ORDERED: FLUARIX QUAD 2017-18 36MOS UP/PF 0.5 ML SYRINGE IM ONE (12:35)
--- NOTE | 2017-03-17 07:13 | Electrocardiograph Report ---
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
== END 2017-03-16 13:00 | disposition home or self-care (01) ==
LOC: 2NENU 11:26 → EMEROO 11:26 → 2NENU 17:34
PROVIDERS: ADMIT Hospitalist; ATTEND Internal Medicine